=== PATIENT | female | born 1940 | race Caucasian/White ===

== ENCOUNTER 2021-12-14 11:46 | Inpatient (IN) | payer MEDICARE, OTHER ==
[2021-12-14 12:36] LABS: #Eosinphils 0.4 thou/uL (0.0-0.7); #Lymphocytes 0.8 thou/uL (1.20-3.40); #Monocytes 0.7 thou/uL (0.11-0.59); #Neutrophils 6.7 thou/uL (1.40-6.50); %Basophils 0.4 % (0.0-1.0); %Eosinophils 4.9 % (0.0-10.0); %Lymphocytes 9.2 % (21.0-51.0); %Monocytes 7.6 % (0.0-10.0); %Neutrophils 77.9 % (42.0-75.0); Hemoglobin 13.8 g/dL (12.0-16.0); Mean Corpuscular HGB CONC 33.2 g/dL (32.0-36.0); Mean Corpuscular Hemoglobin 32.7 pg (27.0-31.0); Mean Corpuscular Volume 98.6 fL (78.0-98.0); Mean Platelet Volume 8.4 fL (7.4-10.4); Platelet Count 219 thou/uL (130-400); Red Blood Cell (RBC) Count 4.22 mill/uL (4.20-5.40); White Blood Cell (WBC) Count 8.6 thou/uL (4.8-10.8)
[2021-12-14 12:55] LABS: ALT (SGPT) 39 U/L (8-55); AST (SGOT) 45 U/L (5-34); Albumin 3.9 g/dL (3.4-4.8); Alkaline Phosphatase 55 U/L (40-110); Anion Gap 17 mmol/L (10-20); BUN (Urea Nitrogen) 40 mg/dL (9.8-20.1); Bilirubin, Total 1.2 mg/dL (0.2-1.2); Calc. Creatinine Clearance 0 mL/min (70-130); Calcium 9.9 mg/dL (7.8-10.44); Carbon Dioxide 18 mmol/L (23-31); Chloride 108 mmol/L (98-107); Estimated GFR 24; Globulin 3.2 g/dL (2.4-3.5); Glucose 99 mg/dL (83-110); Potassium 4.2 mmol/L (3.5-5.1); Protein, Total 7.1 g/dL (5.8-8.1); Sodium 139 mmol/L (136-145)
[2021-12-14] MEDS ORDERED: cefTRIAXone\\ROCEPHIN 1 GM VIAL ONE (15:40)
[2021-12-14] MEDS ORDERED: Sodium Chloride 0.9% 100 ML ONE (15:40)
[2021-12-14] MEDS ORDERED: Ondansetron ODT 4 MG TAB SL PRN (19:15)
[2021-12-14] MEDS ORDERED: Ondansetron PF 4 MG/2 ML Vial IVP PRN (19:15)
[2021-12-14] MEDS ORDERED: Acetaminophen 325 MG TAB PO PRN (19:15)
[2021-12-14] MEDS: Dextrose 5 %-0.45 % NaCl 1,000 ML IV SCH (20:47)
[2021-12-14] MEDS ORDERED: Polyethylene Glycol 3350 17 GM Packet PO PRN (20:51)
[2021-12-14] MEDS: Heparin 5,000 UNITS/ML VIAL SC SCH (21:25)
[2021-12-15] MEDS: Dextrose 5 %-0.45 % NaCl 1,000 ML IV SCH (03:18)
[2021-12-15] MEDS: Levothyroxine Sodium 100 MCG TAB PO SCH (05:22)
[2021-12-15] MEDS: Nystatin Powder 15 GM BOT TOP PRN (06:05)
[2021-12-15] MEDS: Potassium Chloride 20 MEQ TAB PO SCH (08:50)
[2021-12-15] MEDS: Losartan Potassium 50 MG TAB PO SCH (08:50)
[2021-12-15] MEDS: Heparin 5,000 UNITS/ML VIAL SC SCH ×2 (08:50→20:52)
[2021-12-15] MEDS: Amlodipine 10 MG TAB PO SCH (08:50)
[2021-12-15] MEDS ORDERED: Nitrofurantoin Monohyd/M-Cryst 100 MG CAP PO SCH (09:00)
[2021-12-15] MEDS: Hydrochlorothiazide 25 MG TAB PO SCH (09:02)
[2021-12-15] MEDS: Fluconazole 100 MG TAB PO SCH (09:02)
[2021-12-15] MEDS: Ibuprofen 800 MG TAB PO PRN (14:21)
[2021-12-15] MEDS: Cyclobenzaprine 10 MG TAB PO PRN (14:21)
[2021-12-15] MEDS: cefTRIAXone\\ROCEPHIN 1 GM in Sodium Chloride 0.9% 100 ML IVPB SCH (15:59)
[2021-12-15] MEDS: Lovastatin [Lovastatin] 40 MG Tablet PO SCH (17:16)
[2021-12-16] MEDS: Levothyroxine Sodium 100 MCG TAB PO SCH (06:00)
[2021-12-16] MEDS: Fluconazole 100 MG TAB PO SCH (09:27)
[2021-12-16] MEDS: Ibuprofen 800 MG TAB PO PRN (09:27)
[2021-12-16] MEDS: Potassium Chloride 20 MEQ TAB PO SCH (09:27)
[2021-12-16] MEDS: Amlodipine 10 MG TAB PO SCH (09:27)
[2021-12-16] MEDS: Losartan Potassium 50 MG TAB PO SCH (09:28)
[2021-12-16] MEDS: Hydrochlorothiazide 25 MG TAB PO SCH (09:28)
[2021-12-16] MEDS: Heparin 5,000 UNITS/ML VIAL SC SCH ×2 (09:30→20:18)
[2021-12-16 10:00] LABS: ALT (SGPT) 23 U/L (8-55); AST (SGOT) 19 U/L (5-34); Alkaline Phosphatase 49 U/L (40-110); Anion Gap 13 mmol/L (10-20); Bilirubin, Total 0.7 mg/dL (0.2-1.2); Calc. Creatinine Clearance 39 mL/min (70-130); Calcium 8.7 mg/dL (7.8-10.44); Chloride 113 mmol/L (98-107); Estimated GFR 39; Globulin 2.4 g/dL (2.4-3.5); Glucose 99 mg/dL (83-110); Potassium 3.3 mmol/L (3.5-5.1); Protein, Total 5.4 g/dL (5.8-8.1); Sodium 142 mmol/L (136-145)
[2021-12-16 10:37] LABS: Carbon Dioxide 19 mmol/L (23-31)
[2021-12-16 10:43] LABS: BUN (Urea Nitrogen) 29 mg/dL (9.8-20.1)
[2021-12-16 12:09] LABS: Thyroid Stimulating Hormone 2.6606 uIU/mL (0.35-4.94)
[2021-12-16 12:14] LABS: Free T4 (Free Thyroxine) 0.89 ng/dL (0.70-1.48)
[2021-12-16] MEDS: cefTRIAXone\\ROCEPHIN 1 GM in Sodium Chloride 0.9% 100 ML IVPB SCH (15:56)
[2021-12-16] MEDS: Cyclobenzaprine 10 MG TAB PO PRN (15:56)
[2021-12-16] MEDS: Lovastatin [Lovastatin] 40 MG Tablet PO SCH (16:42)
[2021-12-17] MEDS: Levothyroxine Sodium 100 MCG TAB PO SCH (05:10)
[2021-12-17 06:12] VITALS: TEMP 97.6
[2021-12-17] MEDS: Hydrochlorothiazide 25 MG TAB PO SCH (08:48)
[2021-12-17] MEDS: Ibuprofen 800 MG TAB PO PRN (08:50)
[2021-12-17] MEDS: Amlodipine 10 MG TAB PO SCH (08:50)
[2021-12-17 08:51] VITALS: BP 107/71
[2021-12-17] MEDS: Potassium Chloride 20 MEQ TAB PO SCH (08:51)
[2021-12-17] MEDS: Nystatin Powder 15 GM BOT TOP PRN (08:51)
[2021-12-17] MEDS: Losartan Potassium 50 MG TAB PO SCH (08:51)
[2021-12-17] MEDS: Fluconazole 100 MG TAB PO SCH (08:51)
[2021-12-17] MEDS: Heparin 5,000 UNITS/ML VIAL SC SCH (08:52)
== END 2021-12-17 11:37 | DRG 690 ==
LOC: BURERS 11:46 → BURMED 16:29
PROVIDERS: ADMIT Family Medicine; ATTEND Family Medicine
DX: N30.00 Acute cystitis without hematuria (principal); E86.0 Dehydration; I10 Essential (primary) hypertension; Z96.643 Presence of artificial hip joint, bilateral; Z96.651 Presence of right artificial knee joint; E03.9 Hypothyroidism, unspecified; G89.29 Other chronic pain; B37.2 Candidiasis of skin and nail; G47.00 Insomnia, unspecified; Z20.822 Contact with and (suspected) exposure to COVID-19; R53.81 Other malaise; Z86.73 Personal history of transient ischemic attack (TIA), and cerebral infarction without residual deficits; Z98.890 Other specified postprocedural states; Z87.891 Personal history of nicotine dependence; Z88.2 Allergy status to sulfonamides; Z88.8 Allergy status to other drugs, medicaments and biological substances; Z91.81 History of falling; Z79.899 Other long term (current) drug therapy; Z88.5 Allergy status to narcotic agent
CPT/HCPCS: 36415; 71045; 80053; 83605; 83880; 84439; 84443; 84484; 85025; 87040; 93005; J0696; J1644; J3490; J7042; U0003; U0005